=== PATIENT | male | born 1980 | race Caucasian/White ===

== ENCOUNTER 2016-12-11 11:59 | Emergency (ER) | payer BC ==
[2016-12-11] MEDS ORDERED: Aspirin 81 MG Tab.Chew PO ONE (12:07)
--- NOTE | 2016-12-11 12:14 | EDM.PDOC ---
ED HPI GENERAL MEDICAL PROBLEM - General Chief Complaint: Chest Pain Stated Complaint: CHEST PAIN Time Seen by Provider: 12/11/16 12:05 Source of Information: Reports: Patient History Limitations: Reports: No Limitations - History of Present Illness INITIAL COMMENTS - FREE TEXT/NARRATIVE: HISTORY AND PHYSICAL: History of present illness: Patient is a 36-year-old male who presents to the emergency room today with complaints of midsternal chest pain. 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 Patient was woken up around 11 AM this morning with midsternal chest pain and shortness of breath. States the chest pain has been a 4 out of 10 and nothing has improved or made the pain worse. 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 Denies any history of nausea, vomiting, diarrhea, diaphoresis, headache. Patient is a pack per day smoker for the past 2 years. Has no family history of cardiac disease or ID. Review of systems: As per history of present illness and below otherwise all systems reviewed and negative. Past medical history: As per history of present illness and as reviewed below otherwise noncontributory. Surgical history: As per history of present illness and as reviewed below otherwise noncontributory. Social history: No reported history of drug or alcohol abuse. Family history: As per history of present illness and as reviewed below otherwise noncontributory. Physical exam: Gen.: Nontoxic-appearing 36-year-old male. Speaking full sentences without shortness of breath. HEENT: Atraumatic, normocephalic, pupils reactive, negative for conjunctival pallor or scleral icterus, mucous membranes moist, throat clear, neck supple, nontender, trachea midline. Lungs: Clear to auscultation, breath sounds equal bilaterally, chest nontender. Heart: S1S2, regular, negative for clicks, rubs, or JVD. Abdomen: Soft, nondistended, nontender. Negative for masses or hepatosplenomegaly. Negative for costovertebral tenderness. Pelvis: Stable nontender. Genitourinary: Deferred. Rectal: Deferred. Extremities: Atraumatic, negative for cords or calf pain. Neurovascular unremarkable. Neuro: Awake, alert, oriented. Cranial nerves II through XII unremarkable. Cerebellum unremarkable. Motor and sensory unremarkable throughout. Exam nonfocal. Discussed with patient the diagnostic findings of today's visit. Informed patient that I would like to keep him overnight for observation to rule out ID. She voices understanding and is agreeable to plan of care. 1320- Dr. Stafford and agreed to accept this patient for observation telemetry. 1330- A she decided against admission at this time. Patient will sign out AGAINST MEDICAL ADVICE. Instructed patient to return to the emergency room if his pain should worsen as we discussed. Diagnostics: CBC, CMP, troponin, EKG, one view chest x-ray Therapeutics: Aspirin 324, Toradol IV, nitroglycerin Impression: Nonspecific chest pain Plan: 1. Signed out AGAINST MEDICAL ADVICE. 2. These follow up with your primary care provider in the next 1-2 days. Return to the ED as needed as discussed. Definitive disposition and diagnosis as appropriate pending reevaluation and review of above. Onset: Today Duration: Hour(s): Location: Reports: Chest Middle Chest Pain Score (Numeric/FACES): 6 - Related Data Allergies Allergy/AdvReac Type Severity Reaction Status Date / Time gluten Allergy Diarrhea Verified 12/11/16 12:11 Home Meds: Home Meds . [No Known Home Meds] 12/11/16 [History] ED ROS GENERAL - Review of Systems Review Of Systems: ROS reveals no pertinent complaints other than HPI. ED EXAM, GENERAL - Physical Exam Exam: See Below (See dictation) EKG INTERPRETATION EKG Date: 12/11/16 Time: 12:01 Rhythm: NSR Rate (Beats/Min): 64 Comparison: NA - No Prior EKG Course - Vital Signs Last Recorded V/S: Last Vital Signs Temp 36.6 C 12/11/16 13:28 Pulse 63 12/11/16 13:28 Resp 16 12/11/16 13:28 BP 124/58 L 12/11/16 13:28 Pulse Ox 98 12/11/16 13:28 - Orders/Labs/Meds Orders: Active Orders 24 hr Category Date Time Status Admission Status [Patient Status] [ADT] Stat ADT 12/11/16 13:27 Active EKG Documentation Completion [RC] STAT Care 12/11/16 12:07 Active Nitroglycerin [Nitrostat] Med 12/11/16 13:18 Active 0.4 mg SL Q5M PRN Medication Orders Nitroglycerin (Nitrostat) 0.4 mg SL Q5M PRN PRN Reason: Chest Pain Last Admin: 12/11/16 13:23 Dose: 0.4 mg Labs: Laboratory Tests 12/11/16 12/11/16 12/11/16 Range/Units 12:05 12:05 12:05 WBC 5.04 (4.0-11.0) K/uL RBC 5.40 (4.50-5.90) M/uL Hgb 17.3 H (13.0-17.0) g/dL Hct 49.9 (38.0-50.0) % MCV 92.4 (80.0-98.0) fL MCH 32.0 (27.0-32.0) pg MCHC 34.7 (31.0-37.0) g/dL RDW Std Deviation 43.7 (28.0-62.0) fl RDW Coeff of John 13 (11.0-15.0) % Plt Count 191 (150-400) K/uL MPV 10.70 (7.40-12.00) fL Nucleated RBC % 0.0 /100WBC Nucleated RBCs # 0 K/uL Sodium 140 (136-146) mmol/L Potassium 4.1 (3.5-5.1) mmol/L Chloride 105 (98-110) mmol/L Carbon Dioxide 27 (21-31) mmol/L BUN 23 (6.0-23.0) mg/dL Creatinine 1.4 (0.6-1.5) mg/dL Est Cr Clr Drug Dosing 76.94 mL/min Estimated GFR (MDRD) 57.0 ml/min Glucose 104 (60-110) mg/dL Calcium 9.5 (8.8-10.8) mg/dL Total Bilirubin 0.7 (0.1-1.5) mg/dL AST 48 H (5-40) IU/L ALT 52 (8-54) IU/L Alkaline Phosphatase 54 (40-150) Troponin I < 0.10 (0.0-0.29) NG/ML Total Protein 7.0 (6.0-8.0) g/dL Albumin 4.3 (3.5-5.0) g/dL Globulin 2.7 (2.0-3.5) g/dL Albumin/Globulin Ratio 1.6 (1.3-2.8) Meds: Medications Generic Name Dose Route Start Last Admin Trade Name Freq PRN Reason Stop Dose Admin Nitroglycerin 0.4 mg 12/11/16 13:18 12/11/16 13:23 Nitrostat SL 0.4 mg Q5M PRN Administration Chest Pain Discontinued Medications Generic Name Dose Route Start Last Admin Trade Name Freq PRN Reason Stop Dose Admin Aspirin 324 mg 12/11/16 12:07 12/11/16 12:34 Aspirin PO 12/11/16 12:08 324 mg ONETIME ONE Administration Ketorolac Tromethamine 30 mg 12/11/16 12:48 12/11/16 13:08 Toradol IVPUSH 12/11/16 12:49 30 mg ONETIME ONE Administration Departure - Departure Time of Disposition: 13:34 Disposition: Against Medical Advice 07 Clinical Impression: Chest pain, rule out acute myocardial infarction Referrals: PCP,None [Primary Care Provider] - Forms: ED Department Discharge, Refusal of Care AMA Additional Instructions: My general discharge The following information is given to patients seen in the emergency department who are being discharged to home. This information is to outline your options for follow-up care. We provide all patients seen in our emergency department with a follow-up referral. The need for follow-up, as well as the timing and circumstances, are variable depending upon the specifics of your emergency department visit. If you don't have a primary care physician on staff, we will provide you with a referral. We always advise you to contact your personal physician following an emergency department visit to inform them of the circumstance of the visit and for follow-up with them and/or the need for any referrals to a consulting specialist. The emergency department will also refer you to a specialist when appropriate. This referral assures that you have the opportunity for follow-up care with a specialist. All of these measure are taken in an effort to provide you with optimal care, which includes your follow-up. Under all circumstances we always encourage you to contact your private physician who remains a resource for coordinating your care. When calling for follow-up care, please make the office aware that this follow-up is from your recent emergency room visit. If for any reason you are refused follow-up, please contact the [facility] Emergency Department at and asked to speak to the emergency department charge nurse. CAIT[facility] [address] [place] [id number] 1. Signed out AGAINST MEDICAL ADVICE. 2. These follow up with your primary care provider in the next 1-2 days. Return to the ED as needed as discussed. - My Orders Last 24 Hours: My Active Orders 12/11/16 12:07 EKG Documentation Completion [RC] STAT 12/11/16 13:18 Nitroglycerin [Nitrostat] 0.4 mg SL Q5M PRN 12/11/16 13:27 Admission Status [Patient Status] [ADT] Stat - Assessment/Plan Last 24 Hours: My Active Orders 12/11/16 12:07 EKG Documentation Completion [RC] STAT 12/11/16 13:18 Nitroglycerin [Nitrostat] 0.4 mg SL Q5M PRN 12/11/16 13:27 Admission Status [Patient Status] [ADT] Stat
[2016-12-11] MEDS ORDERED: Ketorolac 30 MG/ML SDV IVPUSH ONE (12:48)
--- NOTE | 2016-12-11 13:09 | CR ---
EXAMINATION: Portable chest radiograph. HISTORY: Chest pain. FINDINGS: The trachea is midline. The cardiomediastinal silhouette is within normal limits. No pulmonary infilt rates, effusions or pneumothorax. Osseous structures appear unremarkable. IMPRESSION: No acute cardiopulmonary process.
[2016-12-11] MEDS ORDERED: Nitroglycerin 0.4 MG Tab.SL SL PRN (13:18)
[2016-12-11 13:44] VITALS: BP 125/59
== END 2016-12-11 13:43 | disposition left against medical advice (07) ==
LOC: MW.ED 11:59
DX: R07.2 Precordial pain (principal); F17.210 Nicotine dependence, cigarettes, uncomplicated; Z91.09 Other allergy status, other than to drugs and biological substances
CPT/HCPCS: 36415; 71010; 80053; 84484; 85027; 93005; 96374; 99285; A9270; J1885; 99282